=== PATIENT | female | born 1950 | race African-American/Black ===

== ENCOUNTER 2016-08-03 06:44 | Emergency (ER) | payer OTHER ==
[~2016-08-03] VITALS: Ht 157.5 cm; Wt 86.2 kg
--- NOTE | ~2016-08-03 | EKG ---
[place] [address] [facility] [place] [address] ELECTROCARDIOGRAM REPORT Name: ALANNA ISRAEL Room #: [id number] Admission: 08/03/16 Attend Phys: Discharge: Date of : 54 Report #: [id number] THIS REPORT FOR: //name// [facility] ED Test Date: 2016-08-03 Test Time: 06:49:43 Pat Name: ALANNA ISRAEL Department: Room: Gender: F Pantry Chef: TIA : 1950 Requested By: Skye Fitzgerald Order Number: [id number] MD: Yeison Hein Measurements Intervals [place] Rate: 103 P: 34 W[place]: 132 QRS: -16 QRSD: 84 T: 84 QT: 348 QTc: 456 Interpretive Statements Sinus tachycardia Ventricular premature complex Aberrant complex Probable left atrial enlargement Left ventricular hypertrophy Nonspecific T abnormalities, lateral leads No previous ECG available for comparison Electronically Signed On 08-03-2016 8:30:10 [employer] by Yeison Hein [email or web address] <ELECTRONICALLY SIGNED> By: Yeison Hein MD 08/03/16 0830 0649 [id number] Yeison Hein MD /DAVID
[~2016-08-03 06:44] MED LIST: ANAPROX; CALCIUM; CALCIUM 500+VI1 EACH PO; CARISOPRODOL 3350 MG PO; CIPROFLOXACIN500 M1 PO; FLEXERIL PO; FLOMAX0.4 MG PO; GLUCOTROL10 MG PO; HCTZ; HYDROCHLOROTHIA25 M1 PO; MACROBID 100 M100 M1 PO; MEDROL DOSPAK21 TAB PO; MEDROLDOSEPACK PO; METFORMIN HCL500 M2 PO; METFORMIN HCL500 MG; NORCO 5-325 TA1 EACH PO; NORVASC 2.5 MG2.5 M1; PENICILLIN VK250 MG PO; PERCOCET 10-321 EACH PO; PERCOCET 5-3251 EACH PO; PHENERGAN 25 MG25 M1 PO; TRAMADOL 50 MG50 MG PO; ULTRAM 50MG TAB50 MG PO; VICODIN 5-5001 EACH PO; VITAMIN B-12500 MCG PO; ZOFRAN ODT4 MG PO
[2016-08-03] MEDS ORDERED: GLUCOPHAGE XR500 MG PO (06:59)
[2016-08-03] MEDS ORDERED: AMLODIPINE BESY10 MG PO (07:00)
[2016-08-03 07:18] LABS: ABSOLUTE NEUTROPHILS 5.2 thou/uL (1.4-8.2); EOSINOPHILS 0.8 % (0.0-3.0); LYMPHOCYTES 16.8 % (24.0-44.0); MCH 22.1 pg (26.0-34.0); MCHC 31.6 % (28.0-37.0); MONOCYTES 9.4 % (1.0-8.0); PLATELET COUNT 186 thou/uL (150-400); RBC 5.43 mil/uL (4.20-5.00); RDW 15.2 % (10.5-14.5); WBC 7.2 thou/uL (4.0-11.0)
[2016-08-03 07:20] LABS: MANUAL DIFF NO
[2016-08-03 07:21] LABS: CALCIUM 9.5 mg/dL (8.5-10.1); CREATININE 0.8 mg/dL (0.6-1.3); POTASSIUM 3.3 mmol/L (3.5-5.1)
[2016-08-03 07:30] LABS: TROPONIN-I 0.07 ng/mL (<0.04-0.07)
[2016-08-03 09:42] VITALS: BP 139/91
== END 2016-08-03 09:45 | disposition home or self-care (01) ==
LOC: ER 06:44
PROVIDERS: Emergency Medicine
DX: R07.89 Other chest pain (principal); I10 Essential (primary) hypertension

== ENCOUNTER → 2017-04-13 | Outpatient (CLI) | payer OTHER ==
[~2017-04-13] MED LIST changes: +AMLODIPINE BESY10 MG PO; +GLUCOPHAGE XR500 MG PO
== END ==
LOC: CAT 08:08
DX: J98.11 Atelectasis (principal); R79.89 Other specified abnormal findings of blood chemistry

== ENCOUNTER 2018-04-23 14:15 | Emergency (ER) | payer OTHER | END 2018-04-23 14:55 | disposition left against medical advice (07) | LOC: ER 14:15 | DX: R55 Syncope and collapse (principal); I10 Essential (primary) hypertension; Z98.890 Other specified postprocedural states; Z96.652 Presence of left artificial knee joint ==

== ENCOUNTER 2020-03-31 14:18 | Emergency (ER) | payer OTHER ==
[~2020-03-31] VITALS: Ht 157.5 cm; Wt 85.7 kg
[2020-03-31] MEDS ORDERED: JANUVIA100 MG PO (14:44)
[2020-03-31] MEDS ORDERED: DIAZEPAM 10 MG10 M2 PO (14:45)
[2020-03-31] MEDS ORDERED: CYCLOBENZAPRINE5 MG PO (16:55)
[2020-03-31] MEDS ORDERED: PREDNISONE 20 M20 MG PO (16:59)
[2020-03-31] MEDS ORDERED: NORCO 10-325 T1 EACH PO (17:24)
[2020-03-31 17:31] VITALS: BP 145/73
== END 2020-03-31 17:32 | disposition home or self-care (01) ==
LOC: ER 14:18
DX: M51.26 Other intervertebral disc displacement, lumbar region (principal); M48.061 Spinal stenosis, lumbar region without neurogenic claudication; I10 Essential (primary) hypertension; Z98.890 Other specified postprocedural states; Z96.652 Presence of left artificial knee joint; Z79.899 Other long term (current) drug therapy

== ENCOUNTER 2020-04-09 15:16 | Emergency (ER) | payer OTHER ==
[~2020-04-09] VITALS: Ht 157.5 cm; Wt 83.9 kg
[~2020-04-09 15:16] MED LIST changes: +CYCLOBENZAPRINE5 MG PO; +DIAZEPAM 10 MG10 M2 PO; +JANUVIA100 MG PO; +NORCO 10-325 T1 EACH PO; +PREDNISONE 20 M20 MG PO
[2020-04-09 17:20] LABS: URINE BILIRUBIN NEGATIVE (Negative); URINE BLOOD NEGATIVE (Negative); URINE CLARITY CLEAR; URINE COLOR YELLOW; URINE GLUCOSE-RANDOM* 3+ (Negative); URINE KETONES NEGATIVE (Negative); URINE LEUKOCYTES-REFLEX NEGATIVE (Negative); URINE NITRITE-REFLEX NEGATIVE (Negative); URINE PROTEIN (DIPSTICK) NEGATIVE (Negative); URINE UROBILINOGEN 0.2 E.U./dl (0.2-1.0)
[2020-04-09] MEDS ORDERED: PREDNISONE 20 M20 MG PO (17:33)
[2020-04-09] MEDS ORDERED: TIZANIDINE4 MG/1 TA1 PO (17:33)
[2020-04-09 17:50] VITALS: BP 166/56
== END 2020-04-09 17:54 | disposition home or self-care (01) ==
LOC: ER 15:16
PROVIDERS: Nurse Practitioner
DX: S39.012A Strain of muscle, fascia and tendon of lower back, initial encounter (principal); S00.12XA Contusion of left eyelid and periocular area, initial encounter; I10 Essential (primary) hypertension; Z98.890 Other specified postprocedural states; Z96.652 Presence of left artificial knee joint; Z79.899 Other long term (current) drug therapy; Z91.19 Patient's noncompliance with other medical treatment and regimen; X50.0XXA Overexertion from strenuous movement or load, initial encounter; Y93.89 Activity, other specified; Y92.89 Other specified places as the place of occurrence of the external cause; Y99.8 Other external cause status